=== PATIENT | female | born 1935 | race Caucasian/White ===

== ENCOUNTER 2017-04-25 09:24 | Observation (INO) | payer MEDICARE ==
[2017-04-22 11:24] VITALS: BP 143/71
[2017-04-22 11:59] LABS: BLOOD UREA NITROGEN 13 mg/dL (7-18)
[2017-04-22 12:02] LABS: HEMATOCRIT 40.3 % (34.6-47.8); HEMOGLOBIN 13.4 g/dL (11.7-16.4); WHITE BLOOD COUNT 11.3 x10^3/uL (3.4-10)
[~2017-04-25] VITALS: Ht 157.5 cm; Wt 80.3 kg
[~2017-04-25 09:24] MED LIST: ASPI-496 PO; ISOS30TA8 PO; METO25TA35 PO; PRAV20TA2 PO
[2017-04-25] MEDS ORDERED: SODIUM CHLORIDE 0.9% 1,000 ML IV ONE (09:28)
[2017-04-25] MEDS ORDERED: ASPIRIN 325 MG TABLET EC PO ONE (09:30)
[2017-04-25] MEDS ORDERED: AMLO10TA2 PO (09:45)
[2017-04-25] MEDS ORDERED: NITR0.4T28 SL (09:47)
[2017-04-25] MEDS ORDERED: ASPIRIN 325 MG TABLET EC ONE (10:15)
[2017-04-25] MEDS ORDERED: MIDAZOLAM 1 MG/ML, 5ML ONE (10:24)
[2017-04-25] MEDS ORDERED: LIDOCAINE 2%, 20ML ONE ×2 (10:24→12:54)
[2017-04-25] MEDS ORDERED: NITROGLYCERIN 5 MG/ML, 10ML ONE (10:24)
[2017-04-25] MEDS ORDERED: FENTANYL PF 100 MCG/2ML ONE (10:24)
[2017-04-25] MEDS ORDERED: TICAGRELOR 90 MG TABLET ONE (10:24)
[2017-04-25] MEDS ORDERED: BIVALIRUDIN 250 MG ONE (10:24)
[2017-04-25] MEDS ORDERED: ONDANSETRON 2MG/ML, 2ML ONE (10:36)
[2017-04-25] MEDS ORDERED: HEPARIN 1,000 UNITS/ML, 10ML ONE (12:35)
[2017-04-25] MEDS ORDERED: BIVALIRUDIN 250 MG in DEXTROSE 5% 50 ML IV SCH (13:12)
[2017-04-25] MEDS ORDERED: ZOLPIDEM 5MG TABLET PO PRN (13:30)
[2017-04-25] MEDS ORDERED: NITROGLYCERIN 0.4 MG BOTTLE (25 TABS) SL PRN (13:30)
[2017-04-25] MEDS ORDERED: ONDANSETRON 2MG/ML, 2ML IVPush PRN (13:30)
[2017-04-25] MEDS: SODIUM CHLORIDE 0.9% 1,000 ML IV SCH ×2 (14:07→21:12)
[2017-04-25 19:21] VITALS: BP 119/55
[2017-04-25 19:33] LABS: IS PT STATUS REG ER OR PRE ER? NO
[2017-04-25] MEDS: TICAGRELOR 90 MG TABLET PO SCH (20:53)
[2017-04-25] MEDS ORDERED: METOPROLOL TARTRATE 25 MG TABLET PO SCH (21:00)
[2017-04-25] MEDS ORDERED: ASPIRIN 81 MG TABLET EC PO SCH (21:00)
[2017-04-25] MEDS ORDERED: PRAVASTATIN 20 MG TABLET PO SCH (21:00)
[2017-04-26 00:56] VITALS: BP 134/49
[2017-04-26 04:54] LABS: HEMATOCRIT 32.8 % (34.6-47.8); HEMOGLOBIN 10.9 g/dL (11.7-16.4)
[2017-04-26 05:03] LABS: BLOOD UREA NITROGEN 12 mg/dL (7-18)
[2017-04-26] MEDS: SODIUM CHLORIDE 0.9% 1,000 ML IV SCH (08:00)
[2017-04-26] MEDS ORDERED: TICA90TA PO (08:22)
[2017-04-26 08:44] VITALS: BP 138/72
[2017-04-26] MEDS: TICAGRELOR 90 MG TABLET PO SCH (08:49)
[2017-04-26] MEDS ORDERED: AMLODIPINE 5 MG TABLET PO SCH (09:00)
== END 2017-04-26 11:43 | disposition home or self-care (01) ==
LOC: CACL 09:24 → ORIP 13:12 → 5SO 13:32 → DCLOUNGE 04-26 11:31
PROVIDERS: ADMIT Internal Medicine Cardiovascular Disease; ATTEND Internal Medicine Cardiovascular Disease
DX: I25.110 Atherosclerotic heart disease of native coronary artery with unstable angina pectoris (principal); I10 Essential (primary) hypertension; E78.5 Hyperlipidemia, unspecified; E78.00 Pure hypercholesterolemia, unspecified; I63.9 Cerebral infarction, unspecified; I65.22 Occlusion and stenosis of left carotid artery; R42 Dizziness and giddiness; I34.0 Nonrheumatic mitral (valve) insufficiency; I73.9 Peripheral vascular disease, unspecified; Z82.49 Family history of ischemic heart disease and other diseases of the circulatory system
CPT/HCPCS: 36415; 80048; 82040; 84484; 85014; 85018; 85025; 93005; 93458; 99156; 99157; C1760; C1769; C1874; C1887; C1894; C9600; G0378; J0583; J2250; J2405; J3010; J3490; J7030; Q9967; J1644

== ENCOUNTER → 2017-05-16 | Outpatient (CLI) | payer MEDICARE ==
[~2017-05-16] MED LIST changes: +AMLO10TA2 PO; +NITR0.4T28 SL; +TICA90TA PO
[2017-05-16 10:23] LABS: BLOOD UREA NITROGEN 13 mg/dL (7-18)
[2017-05-16 10:25] LABS: HEMATOCRIT 41.2 % (34.6-47.8); HEMOGLOBIN 14.1 g/dL (11.7-16.4); WHITE BLOOD COUNT 12.1 x10^3/uL (3.4-10)
[2017-05-16 10:37] LABS: ASPARTATE AMINO TRANSFERASE 12 U/L (15-37)
== END | disposition home or self-care (01) ==
LOC: LAB 09:58
PROVIDERS: ATTEND Internal Medicine Cardiovascular Disease
DX: I10 Essential (primary) hypertension (principal); E78.00 Pure hypercholesterolemia, unspecified
CPT/HCPCS: 36415; 80053; 80061; 84436; 84443; 84481; 85025

== ENCOUNTER → 2017-05-18 | Outpatient (CLI) | payer MEDICARE | END | disposition home or self-care (01) | LOC: CVU 10:30 | PROVIDERS: ATTEND Internal Medicine Cardiovascular Disease | DX: I65.23 Occlusion and stenosis of bilateral carotid arteries (principal); I35.8 Other nonrheumatic aortic valve disorders; I11.9 Hypertensive heart disease without heart failure; E78.5 Hyperlipidemia, unspecified; Z86.73 Personal history of transient ischemic attack (TIA), and cerebral infarction without residual deficits; Z95.5 Presence of coronary angioplasty implant and graft | CPT/HCPCS: 93306; 93880 ==

== ENCOUNTER → 2018-02-17 | Outpatient (CLI) | payer MEDICARE ==
[~2018-02-17] MED LIST changes: -AMLO10TA2 PO; +AMLO10TA6 PO
== END | disposition home or self-care (01) ==
LOC: CFH 09:00
PROVIDERS: ATTEND Family Medicine
DX: J98.6 Disorders of diaphragm (principal); Z90.49 Acquired absence of other specified parts of digestive tract; Z85.820 Personal history of malignant melanoma of skin
CPT/HCPCS: 74150

== ENCOUNTER 2018-06-09 09:29 | Emergency (ER) | payer MEDICARE ==
[~2018-06-09] VITALS: Ht 162.6 cm; Wt 80.0 kg
--- NOTE | 2018-06-09 09:32 | NUR ---
82 Y/O FEMALE PRESENTS TO ED WITH C/O "I'VE BEEN SICK FOR ABOUT A MONTH. ONE SAID I HAD ASTHMA, ONE SAID I HAD BRONCHITIS. THE LAST DAY OR TWO I'VE JUST BEEN COUGHING. I HAD A TOUCH OF INDIGESTION THE LAST FEW DAYS. I FELT NAUSEOUS THIS MORNING. I'VE HAD A QUINONES ALSO." NO C/O V/D, TRAUMA, CP, F/C. PT PLACED ON CONT PULSE OX,NIBP. PER REPORT FROM EMS PT WAS AT YESTERDAY AND GOT SOME MAGIC MOUTHWASH, STREP WAS NEGATIVE. PT REFUSED ANTI EMETIC MED PEDS.
[2018-06-09 09:54] LABS: BASOPHILS # (AUTO) 0.08 x10^3/uL (0-0.1); BASOPHILS % (AUTO) 1 % (0-1); EOSINOPHILS # (AUTO) 0.27 x10^3/uL (0-0.4); EOSINOPHILS % (AUTO) 2 % (1-7); LYMPHOCYTES # (AUTO) 2.28 x10^3/uL (1-3.4); LYMPHOCYTES % (AUTO) 17 % (22-44); MD NO; MEAN CORPUSCULAR HEMOGLOBIN 28.3 pg (27.0-34.8); MEAN CORPUSCULAR HGB CONC 33.1 g/dL (32.4-35.8); MEAN CORPUSCULAR VOLUME 85.6 fL (80-100); MEAN PLATELET VOLUME 8.6 fL (7.4-10.4); MONOCYTES # (AUTO) 1.31 x10^3/uL (0.2-0.8); MONOCYTES % (AUTO) 10 % (2-9); NEUTROPHILS % (AUTO) 70 % (42-75); PLATELET COUNT 362 x10^3/uL (130-400); RED BLOOD COUNT 4.95 x10^6/uL (3.82-5.3); RED CELL DISTRIBUTION WIDTH 14.5 % (9.6-15.2)
--- NOTE | 2018-06-09 09:59 | NUR ---
PT STRAIGHT CATH'D. PT TOLERATED WITH NO COMPLICATIONS. UA SENT TO LAB. PT RESTING ON GURNEY. NO ACUTE DISTRESS NOTED. NO NEEDS REQUESTED AT THIS TIME.
[2018-06-09 10:05] LABS: ALANINE AMINOTRANSFERASE 25 U/L (12-78); ALBUMIN 3.3 g/dL (3.4-5.0); ANION GAP 6 mmol/L (5-15); CHLORIDE 104 mmol/L (98-107); CREATININE 0.95 mg/dL (0.55-1.02)
[2018-06-09 10:07] LABS: ALKALINE PHOSPHATASE 82 U/L (45-117); BILIRUBIN,TOTAL 0.5 mg/dL (0.2-1.0); TOTAL PROTEIN 6.9 g/dL (6.4-8.2)
[2018-06-09] MEDS ORDERED: ONDANSETRON ODT 4 MG ONE (10:38)
--- NOTE | 2018-06-09 10:42 | NUR ---
PT RESTING ON [facility]. MEDICATION ADMINISTERED PER EMAR. NO ACUTE DISTRESS NOTED. NO NEEDS REQUESTED AT THIS TIME.
[2018-06-09] MEDS ORDERED: ONDANSETRON ODT 4 MG PO ONE (11:00)
[2018-06-09 11:09] LABS: MICROSCOPIC AUTO
[2018-06-09 11:10] LABS: CULTURE INDICATED? NO
[2018-06-09 11:21] VITALS: BP 134/55
--- NOTE | 2018-06-09 11:21 | NUR ---
PT STATES THE NAUSEA MEDICATION HELPED. PT GIVEN WATER FOR PO CHALLENGE. NO ACUTE DISTRESS NOTED.
--- NOTE | 2018-06-09 11:30 | NUR ---
PT AMBULATED WITH A STEADY GAIT TO THE RESTROOM, DENIES DIZZINESS, PT RETURNED TO ROOM.
--- NOTE | 2018-06-09 11:51 | NUR ---
TASK RN: Patient/Caregiver given discharge instructions and they have confirmed that they understand the instructions. Patient ambulatory with steady gait.
== END 2018-06-09 11:51 | disposition home or self-care (01) ==
LOC: ED 10:21
DX: R55 Syncope and collapse (principal); R05 Cough; K21.9 Gastro-esophageal reflux disease without esophagitis; E78.00 Pure hypercholesterolemia, unspecified; I10 Essential (primary) hypertension; Z86.73 Personal history of transient ischemic attack (TIA), and cerebral infarction without residual deficits; Z90.49 Acquired absence of other specified parts of digestive tract; Z90.710 Acquired absence of both cervix and uterus
CPT/HCPCS: 36415; 71045; 80053; 81001; 85025; 93005; 99284; Q0162

== ENCOUNTER 2018-09-19 10:54 | Inpatient (IN) | payer MEDICARE ==
[~2018-09-19] VITALS: Ht 162.6 cm; Wt 78.9 kg
[~2018-09-19 10:54] MED LIST changes: -AMLO10TA6 PO; +AMLO10TA8 PO
--- NOTE | 2018-09-19 11:55 | NUR ---
MD TO BEDSIDE FOR ASSESSMENT. AWAITING ADDITIONAL ORDERS. IV PLACED AND LABS DRAWN.
[2018-09-19] MEDS ORDERED: LOPERAMIDE 2 MG CAPSULE PO ONE (12:00)
[2018-09-19] MEDS ORDERED: ONDANSETRON 2MG/ML, 2ML IVPush ONE (12:00)
[2018-09-19 12:11] LABS: BASOPHILS # (AUTO) 0.07 x10^3/uL (0-0.1); BASOPHILS % (AUTO) 1 % (0-1); EOSINOPHILS # (AUTO) 0.07 x10^3/uL (0-0.4); EOSINOPHILS % (AUTO) 1 % (1-7); LYMPHOCYTES % (AUTO) 21 % (22-44); MD NO; MEAN CORPUSCULAR HEMOGLOBIN 29.2 pg (27.0-34.8); MEAN CORPUSCULAR HGB CONC 33.9 g/dL (32.4-35.8); MEAN CORPUSCULAR VOLUME 85.9 fL (80-100); MEAN PLATELET VOLUME 10.1 fL (7.4-10.4); MONOCYTES % (AUTO) 12 % (2-9); NEUTROPHILS # (AUTO) 4.85 x10^3/uL (1.8-6.8); NEUTROPHILS % (AUTO) 65 % (42-75); PLATELET COUNT 264 x10^3/uL (130-400); RED BLOOD COUNT 4.35 x10^6/uL (3.82-5.3); RED CELL DISTRIBUTION WIDTH 14.7 % (9.6-15.2)
[2018-09-19 12:12] LABS: ALBUMIN 3.3 g/dL (3.4-5.0); ANION GAP 8 mmol/L (5-15); CALCIUM 8.8 mg/dL (8.5-10.1); CHLORIDE 110 mmol/L (98-107)
[2018-09-19] MEDS ORDERED: LOPERAMIDE 2 MG CAPSULE ONE (12:15)
[2018-09-19] MEDS ORDERED: ONDANSETRON 2MG/ML, 2ML ONE (12:15)
[2018-09-19 12:16] LABS: ALANINE AMINOTRANSFERASE 14 U/L (12-78); ALKALINE PHOSPHATASE 72 U/L (45-117); BILIRUBIN,TOTAL 0.4 mg/dL (0.2-1.0); CREATININE 0.92 mg/dL (0.55-1.02); TOTAL PROTEIN 6.8 g/dL (6.4-8.2)
--- NOTE | 2018-09-19 12:24 | NUR ---
PT UP TO RESTROOM WITHOUT ASSISTANCE NEEDED. UA COLLECTED AND SENT TO LAB. NO STOOL. PT MEDICATED PER AUG. CALL LIGHT WITHN REACH. AWAITING TEST RESULTS AT THIS TIME
[2018-09-19 12:42] LABS: CULTURE INDICATED? YES; MICROSCOPIC INDICATED
[2018-09-19] MEDS ORDERED: SODIUM CHLORIDE FLUSH 10ML SYR IVF ONE ×2 (13:00→13:30)
--- NOTE | 2018-09-19 13:01 | NUR ---
ALL RESLULTS BACK AT THIS TIME, CHART UP FOR RECHECK
--- NOTE | 2018-09-19 14:00 | NUR ---
ADDITIONAL ORDERS RECEIVED. STRAIGHT CATH UA COLLECTED AND SENT. PT TAKEN TO CT
[2018-09-19] MEDS ORDERED: OMNIPAQUE 350 MG/ML, 100ML BOTTLE ONE (14:20)
[2018-09-19 14:27] LABS: MICROSCOPIC AUTO
[2018-09-19 14:31] LABS: CULTURE INDICATED? NO
--- NOTE | 2018-09-19 14:58 | NUR ---
MD TO BEDSIDE TO UPDATE PT AND FAMILY ON POC
[2018-09-19] MEDS ORDERED: KETOROLAC 30 MG/1 ML IV PRN (16:00)
[2018-09-19] MEDS ORDERED: BISACODYL 10 MG SUPP PR PRN (16:00)
[2018-09-19] MEDS ORDERED: DOCUSATE 100 MG CAPSULE PO PRN (16:00)
[2018-09-19] MEDS ORDERED: POLYETHYLENE GLYCOL 17 GM PACKET PO PRN (16:00)
[2018-09-19] MEDS ORDERED: ACETAMINOPHEN 325 MG TABLET PO PRN (16:00)
[2018-09-19] MEDS ORDERED: PROMETHAZINE 25 MG/ML, 1ML IM PRN (16:00)
[2018-09-19] MEDS ORDERED: ENALAPRILAT 1.25 MG/ML, 2ML IVPush PRN (16:00)
[2018-09-19] MEDS ORDERED: ONDANSETRON ODT 4 MG PO PRN (16:00)
[2018-09-19] MEDS ORDERED: ONDANSETRON 2MG/ML, 2ML IVPush PRN (16:00)
[2018-09-19] MEDS ORDERED: LABETALOL 5MG/ML, 20ML IVPush PRN (16:00)
--- NOTE | 2018-09-19 16:37 | NUR ---
REPORT GIVEN TO KACY RN, PT READY FOR TRANSPORT
--- NOTE | 2018-09-19 17:07 | NUR ---
BREAK RN: PT BACK FROM MRI. PT TO FLOOR.
[2018-09-19] MEDS ORDERED: CLOP75TA PO (17:33)
[2018-09-19] MEDS ORDERED: PRAV20TA2 PO (17:33)
[2018-09-19] MEDS ORDERED: AMLO-150 PO (17:33)
[2018-09-19] MEDS ORDERED: PANT40TA5 PO (17:33)
[2018-09-19] MEDS ORDERED: METF500T27 PO (17:33)
[2018-09-19] MEDS ORDERED: LEVO25TA4 PO (17:33)
[2018-09-19] MEDS ORDERED: METO-93 PO (17:33)
[2018-09-19] MEDS ORDERED: ISOS60TA36 PO (17:33)
[2018-09-19] MEDS: NS + 20MEQ KCL 1,000 ML IV SCH (17:56)
[2018-09-19 19:09] VITALS: BP 103/59
[2018-09-20 02:46] VITALS: BP 118/55
[2018-09-20] MEDS: NS + 20MEQ KCL 1,000 ML IV SCH (03:16)
[2018-09-20 06:37] LABS: BASOPHILS # (AUTO) 0.04 x10^3/uL (0-0.1); BASOPHILS % (AUTO) 1 % (0-1); EOSINOPHILS # (AUTO) 0.13 x10^3/uL (0-0.4); EOSINOPHILS % (AUTO) 2 % (1-7); LYMPHOCYTES # (AUTO) 1.78 x10^3/uL (1-3.4); LYMPHOCYTES % (AUTO) 28 % (22-44); MD NO; MEAN CORPUSCULAR HEMOGLOBIN 28.6 pg (27.0-34.8); MEAN CORPUSCULAR HGB CONC 33.3 g/dL (32.4-35.8); MEAN CORPUSCULAR VOLUME 85.9 fL (80-100); MEAN PLATELET VOLUME 9.9 fL (7.4-10.4); MONOCYTES # (AUTO) 0.72 x10^3/uL (0.2-0.8); MONOCYTES % (AUTO) 11 % (2-9); NEUTROPHILS # (AUTO) 3.65 x10^3/uL (1.8-6.8); NEUTROPHILS % (AUTO) 58 % (42-75); PLATELET COUNT 229 x10^3/uL (130-400); RED BLOOD COUNT 3.73 x10^6/uL (3.82-5.3); RED CELL DISTRIBUTION WIDTH 14.5 % (9.6-15.2)
[2018-09-20 06:41] LABS: ALBUMIN 2.9 g/dL (3.4-5.0); ANION GAP 6 mmol/L (5-15); CHLORIDE 118 mmol/L (98-107)
[2018-09-20 06:47] LABS: ALANINE AMINOTRANSFERASE 16 U/L (12-78); ALKALINE PHOSPHATASE 59 U/L (45-117); BILIRUBIN,TOTAL 0.4 mg/dL (0.2-1.0); TOTAL PROTEIN 5.7 g/dL (6.4-8.2)
[2018-09-20 07:10] VITALS: BP 121/50
[2018-09-20] MEDS ORDERED: POTASSIUM CHLORIDE 20 MEQ in SODIUM CHLORIDE 0.45% 1,000 ML IV SCH (07:30)
[2018-09-20] MEDS: METOPROLOL SUCCINATE 50 MG TAB.ER.24H PO SCH (09:00)
[2018-09-20] MEDS ORDERED: METOPROLOL SUCCINATE 25 MG TAB.ER.24H ONE (09:12)
[2018-09-20] MEDS: ISOSORBIDE MONONITRATE ER 60 MG TABLET PO SCH (09:18)
[2018-09-20] MEDS: CLOPIDOGREL 75 MG TABLET PO SCH (09:19)
[2018-09-20] MEDS: LEVOTHYROXINE 25 MCG TABLET PO SCH (09:19)
[2018-09-20] MEDS: PANTOPROZOLE 40MG TABLET PO SCH (09:25)
[2018-09-20 13:36] VITALS: BP 123/62
[2018-09-20] MEDS: IRON SUCROSE COMPLEX 100MG/5ML IV SCH (17:36)
[2018-09-20 19:57] VITALS: BP 122/68
[2018-09-20] MEDS ORDERED: PRAVASTATIN 20 MG TABLET PO SCH (21:00)
[2018-09-20] MEDS ORDERED: ASPIRIN 81 MG TABLET EC PO SCH (21:00)
[2018-09-21 02:54] VITALS: BP 121/69
[2018-09-21 06:24] LABS: BASOPHILS # (AUTO) 0.06 x10^3/uL (0-0.1); BASOPHILS % (AUTO) 1 % (0-1); CHLORIDE 116 mmol/L (98-107); EOSINOPHILS # (AUTO) 0.15 x10^3/uL (0-0.4); EOSINOPHILS % (AUTO) 2 % (1-7); LYMPHOCYTES # (AUTO) 1.87 x10^3/uL (1-3.4); LYMPHOCYTES % (AUTO) 24 % (22-44); MD NO; MEAN CORPUSCULAR HGB CONC 33.7 g/dL (32.4-35.8); MEAN CORPUSCULAR VOLUME 86.1 fL (80-100); MEAN PLATELET VOLUME 9.8 fL (7.4-10.4); MONOCYTES # (AUTO) 0.82 x10^3/uL (0.2-0.8); MONOCYTES % (AUTO) 11 % (2-9); NEUTROPHILS # (AUTO) 4.85 x10^3/uL (1.8-6.8); NEUTROPHILS % (AUTO) 63 % (42-75); PLATELET COUNT 217 x10^3/uL (130-400); RED BLOOD COUNT 3.96 x10^6/uL (3.82-5.3); RED CELL DISTRIBUTION WIDTH 14.5 % (9.6-15.2)
[2018-09-21 06:30] LABS: ANION GAP 5 mmol/L (5-15); CALCIUM 8.5 mg/dL (8.5-10.1); CREATININE 0.76 mg/dL (0.55-1.02)
[2018-09-21] MEDS ORDERED: METOPROLOL SUCCINATE 25 MG TAB.ER.24H ONE (07:57)
[2018-09-21] MEDS: METOPROLOL SUCCINATE 50 MG TAB.ER.24H PO SCH (08:06)
[2018-09-21] MEDS: IRON SUCROSE COMPLEX 100MG/5ML IV SCH (08:06)
[2018-09-21] MEDS: LEVOTHYROXINE 25 MCG TABLET PO SCH (08:06)
[2018-09-21] MEDS: PANTOPROZOLE 40MG TABLET PO SCH (08:06)
[2018-09-21] MEDS: CLOPIDOGREL 75 MG TABLET PO SCH (08:07)
[2018-09-21] MEDS: ISOSORBIDE MONONITRATE ER 60 MG TABLET PO SCH (08:07)
[2018-09-21 09:13] VITALS: BP 148/72
[2018-09-21] MEDS ORDERED: FERR324T5 PO (10:30)
[2018-09-21 13:27] VITALS: BP 136/68
[2018-09-21] MEDS ORDERED: FERROUS SULFATE 325 MG TABLET PO SCH (17:00)
== END 2018-09-21 14:30 | disposition home or self-care (01) | DRG 445 ==
LOC: ED 13:00 → EDIP 15:07 → 4NOR 17:08
PROVIDERS: ADMIT Hospitalist; ATTEND Hospitalist
PROC: 0T9B70Z Drainage of Bladder with Drainage Device, Via Natural or Artificial Opening (ICD-10-PCS; principal; 2018-09-19)
DX: K83.1 Obstruction of bile duct (principal); E44.0 Moderate protein-calorie malnutrition; D64.9 Anemia, unspecified; E03.9 Hypothyroidism, unspecified; E11.9 Type 2 diabetes mellitus without complications; E78.00 Pure hypercholesterolemia, unspecified; E78.5 Hyperlipidemia, unspecified; E87.6 Hypokalemia; H91.90 Unspecified hearing loss, unspecified ear; I10 Essential (primary) hypertension; I25.10 Atherosclerotic heart disease of native coronary artery without angina pectoris; K21.9 Gastro-esophageal reflux disease without esophagitis; K52.9 Noninfective gastroenteritis and colitis, unspecified; N28.1 Cyst of kidney, acquired; Z82.3 Family history of stroke; Z82.49 Family history of ischemic heart disease and other diseases of the circulatory system; Z85.820 Personal history of malignant melanoma of skin; Z86.73 Personal history of transient ischemic attack (TIA), and cerebral infarction without residual deficits; Z90.710 Acquired absence of both cervix and uterus; Z95.5 Presence of coronary angioplasty implant and graft; Z68.29 Body mass index [BMI] 29.0-29.9, adult; Z88.6 Allergy status to analgesic agent; Z88.8 Allergy status to other drugs, medicaments and biological substances
CPT/HCPCS: 36415; 74177; 74181; 80048; 80053; 81001; 82728; 83540; 83550; 83690; 83735; 84100; 84466; 85025; 87086; 96374; G0378; J1756; J2405; J3480; Q9967

== ENCOUNTER 2019-01-09 08:20 | Outpatient (CLI) | payer MEDICARE | END 2019-01-09 23:59 | disposition home or self-care (01) | LOC: CVU 08:20 | PROVIDERS: ATTEND Internal Medicine Cardiovascular Disease | DX: I08.2 Rheumatic disorders of both aortic and tricuspid valves (principal); I65.21 Occlusion and stenosis of right carotid artery; I25.10 Atherosclerotic heart disease of native coronary artery without angina pectoris; I10 Essential (primary) hypertension; E78.5 Hyperlipidemia, unspecified; Z87.891 Personal history of nicotine dependence | CPT/HCPCS: 0399T; 93306; 93880 ==

== ENCOUNTER → 2020-04-07 | Outpatient (CLI) | payer MEDICARE ==
[~2020-04-07] MED LIST changes: +AMLO-150 PO; +CLOP75TA PO; +FERR324T5 PO; +ISOS60TA36 PO; +LEVO25TA4 PO; +METF500T27 PO; +METO-93 PO; +PANT40TA6 PO
== END | disposition home or self-care (01) ==
LOC: CFH 08:37
PROVIDERS: ATTEND Family Medicine
DX: Z12.31 Encounter for screening mammogram for malignant neoplasm of breast (principal); M19.011 Primary osteoarthritis, right shoulder; M85.88 Other specified disorders of bone density and structure, other site; N95.8 Other specified menopausal and perimenopausal disorders; M25.811 Other specified joint disorders, right shoulder
CPT/HCPCS: 77063; 77067; 77080

== ENCOUNTER 2020-09-09 00:36 | Observation (INO) | payer MEDICARE ==
[~2020-09-09] VITALS: Ht 162.6 cm; Wt 75.5 kg
[~2020-09-09 00:36] MED LIST changes: +AMLO-211 PO; -AMLO10TA8 PO
[2020-09-09 01:39] LABS: BASOPHILS % (AUTO) 1 % (0-1); EOSINOPHILS % (AUTO) 3 % (1-7); LYMPHOCYTES % (AUTO) 24 % (22-44); MEAN CORPUSCULAR HEMOGLOBIN 29.3 pg (27.0-34.8); MEAN CORPUSCULAR HGB CONC 33.1 g/dL (32.4-35.8); MEAN PLATELET VOLUME 9.1 fL (7.4-10.4); MONOCYTES % (AUTO) 12 % (2-9); NEUTROPHILS % (AUTO) 61 % (42-75); PLATELET COUNT 281 x10^3/uL (130-400); RED BLOOD COUNT 5.02 x10^6/uL (3.82-5.3); RED CELL DISTRIBUTION WIDTH 13.8 % (9.6-15.2)
[2020-09-09 01:43] LABS: MD NO
[2020-09-09 01:45] LABS: ALANINE AMINOTRANSFERASE 17 U/L (12-78); ALBUMIN 3.7 g/dL (3.4-5.0); ANION GAP 7 mmol/L (5-15); CHLORIDE 111 mmol/L (98-107); CREATININE 0.86 mg/dL (0.55-1.02)
[2020-09-09 01:55] LABS: ALKALINE PHOSPHATASE 96 U/L (45-117); BILIRUBIN,TOTAL 0.3 mg/dL (0.2-1.0); TOTAL PROTEIN 7.6 g/dL (6.4-8.2); TROPONIN I < 0.015 ng/mL (0.000-0.045)
--- NOTE | 2020-09-09 02:00 | NUR ---
PT CAME TO ER WITH C/O SOB WITH WALKING, LIGHT HEADED AND INCREASED WEAKNESS OVER THE LAST DAY. PT DENED CURRENT CP
[2020-09-09] MEDS ORDERED: ASPIRIN 81 MG TABLET CHEW ONE (02:43)
--- NOTE | 2020-09-09 02:54 | NUR ---
REPORT TO MIGNON MORLEY
[2020-09-09] MEDS ORDERED: ONDANSETRON 2MG/ML, 2ML IVPush PRN ×2 (03:00→03:30)
[2020-09-09] MEDS ORDERED: MORPHINE SULFATE 4 MG/ML, 1ML IVPush PRN (03:00)
[2020-09-09] MEDS ORDERED: ASPIRIN 81 MG TABLET CHEW PO ONE (03:00)
[2020-09-09 03:15] VITALS: BP 143/74
[2020-09-09] MEDS ORDERED: POLYETHYLENE GLYCOL 17 GM PACKET PO PRN (03:30)
[2020-09-09] MEDS ORDERED: PROMETHAZINE 25 MG/ML, 1ML IM PRN (03:30)
[2020-09-09] MEDS ORDERED: ACETAMINOPHEN 325 MG TABLET PO PRN (03:30)
[2020-09-09] MEDS ORDERED: morphine SULFATE 10 MG/ML, 1ML IVPush PRN (03:30)
[2020-09-09] MEDS ORDERED: BISACODYL 10 MG SUPP PR PRN (03:30)
[2020-09-09] MEDS ORDERED: DOCUSATE 100 MG CAPSULE PO PRN (03:30)
[2020-09-09] MEDS ORDERED: hydrALAzine 20 MG/ML, 1ML IVPush PRN (03:30)
[2020-09-09] MEDS ORDERED: NITROGLYCERIN 0.4 MG BOTTLE (25 TABS) SL PRN (03:30)
[2020-09-09] MEDS ORDERED: ONDANSETRON ODT 4 MG PO PRN (03:30)
[2020-09-09] MEDS ORDERED: SODIUM CHLORIDE 0.9% 1,000 ML IV SCH (05:00)
[2020-09-09] MEDS: HEPARIN 5,000 UNITS/ML, 1ML SQ SCH ×2 (05:24→14:23)
[2020-09-09] MEDS ORDERED: ASPIRIN 325 MG TABLET EC PO SCH (06:00)
[2020-09-09] MEDS ORDERED: PANTOPRAZOLE 40 MG IV IVPush SCH (06:00)
[2020-09-09] MEDS ORDERED: LEVOTHYROXINE 25 MCG TABLET PO SCH (06:00)
[2020-09-09 06:08] LABS: BASOPHILS % (AUTO) 1 % (0-1); EOSINOPHILS % (AUTO) 2 % (1-7); LYMPHOCYTES % (AUTO) 26 % (22-44); MEAN CORPUSCULAR HEMOGLOBIN 29.4 pg (27.0-34.8); MEAN CORPUSCULAR HGB CONC 33.7 g/dL (32.4-35.8); MEAN PLATELET VOLUME 8.9 fL (7.4-10.4); MONOCYTES % (AUTO) 10 % (2-9); NEUTROPHILS % (AUTO) 61 % (42-75); PLATELET COUNT 229 x10^3/uL (130-400); RED BLOOD COUNT 4.61 x10^6/uL (3.82-5.3); RED CELL DISTRIBUTION WIDTH 13.8 % (9.6-15.2)
[2020-09-09 06:09] LABS: MD NO
[2020-09-09 06:20] LABS: ALANINE AMINOTRANSFERASE 15 U/L (12-78); ALBUMIN 3.5 g/dL (3.4-5.0); ANION GAP 6 mmol/L (5-15); CALCIUM 8.6 mg/dL (8.5-10.1); CHLORIDE 110 mmol/L (98-107); CHOLESTEROL, TOTAL 119 mg/dL (140-239); CREATININE 0.65 mg/dL (0.55-1.02); TRIGLYCERIDES 52 mg/dL (50-200); VLDL CHOLESTEROL 10 mg/dL (0-25)
[2020-09-09 06:24] LABS: ALKALINE PHOSPHATASE 83 U/L (45-117); BILIRUBIN,TOTAL 0.3 mg/dL (0.2-1.0); CHOL/HDL RATIO 2.3; HDL CHOL % 44 % (28-40); HDL CHOLESTEROL (DIRECT) 52 mg/dL (40-60); LDL CHOLESTEROL,CALCULATED 57 mg/dL (54-169); LDL/HDL RATIO 1.1 (0.5-3.0); TOTAL PROTEIN 6.9 g/dL (6.4-8.2); TROPONIN I < 0.015 ng/mL (0.000-0.045)
[2020-09-09 07:40] VITALS: BP 127/74
[2020-09-09] MEDS ORDERED: REGADENOSON 0.4 MG/5 ML SYRINGE ONE (08:17)
[2020-09-09 08:33] LABS: TROPONIN I < 0.015 ng/mL (0.000-0.045)
[2020-09-09] MEDS ORDERED: AMLODIPINE 10 MG TAB PO SCH (09:00)
[2020-09-09] MEDS ORDERED: METOPROLOL SUCCINATE 50 MG TAB.ER.24H PO SCH (09:00)
[2020-09-09] MEDS ORDERED: INSULIN LISPRO 100 UNITS/ML, PEN SQ-INSULIN SCH (11:00)
[2020-09-09 13:41] VITALS: BP 113/64
[2020-09-09] MEDS ORDERED: OMEP-110 PO (15:10)
[2020-09-09] MEDS ORDERED: PRAVASTATIN 40 MG TABLET PO SCH (21:00)
== END 2020-09-09 16:13 | disposition home or self-care (01) ==
LOC: ED 00:51 → EDIP 02:58 → INTOOBSV 02:58 → 5SO 03:14 → DCLOUNGE 16:09
PROVIDERS: ADMIT Internal Medicine; ATTEND Family Medicine
DX: R07.89 Other chest pain (principal); I25.110 Atherosclerotic heart disease of native coronary artery with unstable angina pectoris; K21.9 Gastro-esophageal reflux disease without esophagitis; R06.00 Dyspnea, unspecified; E03.9 Hypothyroidism, unspecified; E78.5 Hyperlipidemia, unspecified; C43.9 Malignant melanoma of skin, unspecified; E11.9 Type 2 diabetes mellitus without complications; I10 Essential (primary) hypertension; H91.90 Unspecified hearing loss, unspecified ear; Z86.73 Personal history of transient ischemic attack (TIA), and cerebral infarction without residual deficits; Z95.5 Presence of coronary angioplasty implant and graft; Z90.710 Acquired absence of both cervix and uterus; Z79.82 Long term (current) use of aspirin; Z79.899 Other long term (current) drug therapy
CPT/HCPCS: 36415; 71045; 78452; 80053; 80061; 82962; 83036; 84443; 84484; 85025; 93005; 93017; 93306; 93356; 96361; 96372; 96374; 99285; A9502; C9113; G0378; J1644; J2785; J7030

== ENCOUNTER 2020-11-26 22:14 | Emergency (ER) | payer MEDICARE ==
[~2020-11-26] VITALS: Ht 162.6 cm; Wt 73.9 kg
[~2020-11-26 22:14] MED LIST changes: +OMEP-110 PO
[2020-11-26] MEDS ORDERED: SODIUM CHLORIDE FLUSH 10ML SYR IVF ONE (23:00)
[2020-11-26 23:14] LABS: BASOPHILS % (AUTO) 1 % (0-1); EOSINOPHILS % (AUTO) 2 % (1-7); LYMPHOCYTES % (AUTO) 25 % (22-44); MEAN CORPUSCULAR HEMOGLOBIN 29.4 pg (27.0-34.8); MEAN CORPUSCULAR HGB CONC 33.8 g/dL (32.4-35.8); MEAN PLATELET VOLUME 9.3 fL (7.4-10.4); MONOCYTES % (AUTO) 11 % (2-9); NEUTROPHILS % (AUTO) 62 % (42-75); PLATELET COUNT 237 x10^3/uL (130-400); RED BLOOD COUNT 4.61 x10^6/uL (3.82-5.3)
[2020-11-26 23:18] LABS: MICROSCOPIC AUTO
[2020-11-26 23:26] LABS: ALANINE AMINOTRANSFERASE 16 U/L (12-78); ALBUMIN 3.4 g/dL (3.4-5.0); ANION GAP 7 mmol/L (5-15); CALCIUM 8.8 mg/dL (8.5-10.1); CHLORIDE 112 mmol/L (98-107); CREATININE 0.66 mg/dL (0.55-1.02)
[2020-11-26 23:28] LABS: ALKALINE PHOSPHATASE 90 U/L (45-117); BILIRUBIN,TOTAL 0.3 mg/dL (0.2-1.0); TOTAL PROTEIN 7.2 g/dL (6.4-8.2)
[2020-11-26] MEDS ORDERED: ONDANSETRON 2MG/ML, 2ML IVPush ONE (23:30)
[2020-11-26] MEDS ORDERED: ACETAMINOPHEN 325 MG TABLET ONE (23:59)
[2020-11-27] MEDS ORDERED: ACETAMINOPHEN 325 MG TABLET PO ONE (00:30)
--- NOTE | 2020-11-27 00:50 | NUR ---
PT TO CT
[2020-11-27] MEDS ORDERED: OMNIPAQUE 350 MG/ML, 100ML BOTTLE ONE (01:08)
[2020-11-27] MEDS ORDERED: CEFDINIR 300 MG CAPSULE ONE (02:41)
[2020-11-27 02:47] VITALS: BP 127/48
[2020-11-27] MEDS ORDERED: CEFDINIR 300 MG CAPSULE PO ONE (03:00)
== END 2020-11-27 02:49 | disposition home or self-care (01) ==
LOC: ED 22:34
DX: N39.0 Urinary tract infection, site not specified (principal); E11.9 Type 2 diabetes mellitus without complications; K21.9 Gastro-esophageal reflux disease without esophagitis; I25.10 Atherosclerotic heart disease of native coronary artery without angina pectoris; E78.5 Hyperlipidemia, unspecified; I10 Essential (primary) hypertension; Z90.89 Acquired absence of other organs; Z98.61 Coronary angioplasty status; Z86.73 Personal history of transient ischemic attack (TIA), and cerebral infarction without residual deficits; Z90.49 Acquired absence of other specified parts of digestive tract; Z90.710 Acquired absence of both cervix and uterus; Z86.39 Personal history of other endocrine, nutritional and metabolic disease
CPT/HCPCS: 36415; 71045; 74177; 76700; 80053; 81001; 83690; 85025; 85379; 87086; 93005; 99285; Q9967

== ENCOUNTER 2021-02-11 06:34 | Outpatient (CLI) | payer MEDICARE | END 2021-02-11 23:59 | disposition home or self-care (01) | LOC: CVU 06:34 | PROVIDERS: ATTEND Internal Medicine Cardiovascular Disease | DX: I70.213 Atherosclerosis of native arteries of extremities with intermittent claudication, bilateral legs (principal); I65.23 Occlusion and stenosis of bilateral carotid arteries | CPT/HCPCS: 93922 ==

== ENCOUNTER 2021-02-13 10:59 | Outpatient (CLI) | payer MEDICARE | END 2021-02-13 23:59 | disposition home or self-care (01) | LOC: CFH 10:59 | PROVIDERS: ATTEND Internal Medicine | DX: I67.82 Cerebral ischemia (principal); G31.9 Degenerative disease of nervous system, unspecified; I69.398 Other sequelae of cerebral infarction; R26.89 Other abnormalities of gait and mobility; R41.3 Other amnesia | CPT/HCPCS: 70450 ==